=== PATIENT | male | born 1950 ===

== ENCOUNTER 2019-02-11 23:22 | Emergency (ER) | payer SELFPAY ==
[2019-02-11 23:39] VITALS: TEMP 98.1; O2SAT 99
--- NOTE | 2019-02-12 00:37 | ED PDOC ---
HPI: SOB/CHF/COPD Time Seen by Provider: 02/12/19 00:02 Chief Complaint (Nursing): Shortness Of Breath Chief Complaint (Provider): Chest pain History Per: Patient, Family History/Exam Limitations: no limitations Onset/Duration Of Symptoms: Hrs (x1) Current Symptoms Are (Timing): Still Present Additional Complaint(s): 68 y/o male with a PMHx of HTN presents to the ED with daughter for evaluation of chest pain. Patient reports of noticing an elevated blood pressure causing chest pain one hour ago that has since resolved. Patient denies feeling any chest pain at present. Patient notes of taking Lisinopril for HTN control every day as prescribed. Daughter notes patient also has developed decreased vision in the right eye since January 19, 2019. Patient notes of being seen by an opthamologist. Patient reports he cannot sleep at night because he is very nervous/anxious. Denies nausea, vomiting, diarrhea and shortness of breath. PMD: Clifford Chopra Past Medical History Reviewed: Historical Data, Nursing Documentation, Vital Signs Vital Signs: Last Vital Signs Temp 98.1 F 02/11/19 23:31 Pulse 61 02/11/19 23:31 Resp 16 02/11/19 23:31 BP 164/88 H 02/11/19 23:31 Pulse Ox 99 02/11/19 23:31 Primary Care Provider: Clifford Chopra - Medical History PMH: HTN - Surgical History Surgical History: No Surg Hx - Family History Family History: States: Unknown Family Hx - Living Arrangements Living Arrangements: With Family - Allergies Allergies/Adverse Reactions: Allergies Allergy/AdvReac Type Severity Reaction Status Date / Time No Known Allergies Allergy Verified 02/11/19 23:37 Review of Systems ROS Statement: Except As Marked, All Systems Reviewed And Found Negative Eyes: Positive for: Vision Change Cardiovascular: Positive for: Chest Pain Physical Exam - Reviewed Nursing Documentation Reviewed: Yes Vital Signs Reviewed: Yes - Physical Exam Appears: Positive for: No Acute Distress Head Exam: Positive for: ATRAUMATIC, NORMOCEPHALIC Skin: Positive for: Normal Color, Warm, Dry Eye Exam: Positive for: Normal appearance, EOMI, PERRL ENT: Positive for: Normal ENT Inspection Neck: Positive for: Normal, Painless ROM, Supple Cardiovascular/Chest: Positive for: Regular Rate, Rhythm. Negative for: Murmur Respiratory: Positive for: Normal Breath Sounds. Negative for: Respiratory Distress Gastrointestinal/Abdominal: Positive for: Normal Exam, Soft. Negative for: Tenderness Extremity: Positive for: Normal ROM. Negative for: Deformity Neurological/Psych: Positive for: Awake, Alert, Oriented (x3). Negative for: Motor/Sensory Deficits - Laboratory Results Result Diagrams: 02/12/19 00:39 02/12/19 00:39 - ECG O2 Sat by Pulse Oximetry: 99 (RA) Pulse Ox Interpretation: Normal Medical Decision Making Medical Decision Making: Time: 28 Impression: Resolved Chest Pain Differentials include but not limited to uncontrolled HTN and ACS Plan: -- EKG -- BMP -- Troponin I -- CBC with Differentials -- CXR Two Views Scribe Attestation: Documented by Rolf Barajas, acting as a scribe Nidia Reno MD. Provider Scribe Attestation: All medical record entries made by the Scribe were at my direction and personally dictated by me. I have reviewed the chart and agree that the record accurately reflects my personal performance of the history, physical exam, med [facility] decision making, and the department course for this patient. I have also personally directed, reviewed, and agree with the discharge instructions and disposition. Disposition - Clinical Impression Clinical Impression: Chest pain, Hypertension, Left against medical advice - Patient ED Disposition Is Patient to be Admitted: No Doctor Will See Patient In The: Office Counseled Patient/Family Regarding: Studies Performed, Diagnosis, Need For Followup - Disposition Referrals: Clifford Chopra MD [Primary Care Provider] - Disposition: Against Medical Advice Disposition Time: 03:17 Condition: GOOD Additional Instructions: LYNDA RODRIGUEZ, thank you for letting us take care of you today. Your provider was Nba Reno MD and you were treated for SOB. The emergency medical care you received today was directed at your acute symptoms. If you were prescribed any medication, please fill it and take as directed. It may take several days for your symptoms to resolve. Return to the Emergency Department if your symptoms worsen, do not improve, or if you have any other problems. Please contact your doctor or call one of the physicians/clinics you have been referred to that are listed on the Patient Visit Information form that is included in your discharge packet. Bring any paperwork you were given at discharge with you along with any medications you are taking to your follow up visit. Our treatment cannot replace ongoing medical care by a primary care provider outside of the emergency department. Thank you for allowing the [facility] team to be part of your care today. If you had an X-Ray or CT scan: A Radiologist will review the ED reading if any change in treatment is needed we will contact you. Instructions: Chest Pain, Leaving Against Medical Advice Forms: [employer] ([place]) Print Language: GEORGIAN
[2019-02-12 00:43] LABS: BASO % 0.9 % (0.0-2.0); EOS # 0.1 K/uL (0.0-0.7); HEMOGLOBIN 13.8 g/dL (12.0-18.0); LYMPH # 1.1 K/uL (1.0-4.3); LYMPH % 21.7 % (20.0-40.0); MEAN CELL VOLUME 91.1 fl (80.0-94.0); MEAN CORPUSCULAR HEMOGLOBIN 30.8 pg (27.0-31.0); MEAN CORPUSCULAR HGB CONC 33.8 g/dL (33.0-37.0); MEAN PLATELET VOLUME 8.6 fl (7.2-11.7); MONO # 0.6 K/uL (0.0-0.8); MONO % 10.9 % (0.0-10.0); NEUT # 3.4 K/uL (1.8-7.0); NEUT % 64.5 % (50.0-75.0); RBC 4.47 Mil/uL (4.40-5.90); RED CELL DISTRIBUTION WIDTH 12.8 % (11.5-14.5); WHITE BLOOD COUNT 5.2 K/uL (4.8-10.8)
[2019-02-12 00:50] LABS: BLOOD UREA NITROGEN 18 mg/dl (9-20); CALCIUM 9.2 mg/dL (8.4-10.2); GFR NON-AFRICAN AMERICAN > 60
[2019-02-12 03:19] VITALS: PULSE 52; RESP 16
[2019-02-12 03:20] VITALS: BP 133/76
--- NOTE | 2019-02-12 10:16 | RAD ---
Date of service: 02/12/2019 HISTORY: chest pain COMPARISON: No prior. TECHNIQUE: Chest PA and lateral views FINDINGS: LUNGS: No active pulmonary disease. PLEURA: No significant pleural effusion identified. No pneumothorax apparent. CARDIOVASCULAR: There is presence of aortic atherosclerotic calcification on x-ray. Normal cardiac size. No pulmonary vascular congestion. OSSEOUS STRUCTURES: No significant abnormalities. VISUALIZED UPPER ABDOMEN: Normal. OTHER FINDINGS: None. IMPRESSION: No active disease.
--- NOTE | 2019-02-12 17:54 | CARD ---
APPROVED REPORT Date of service: 02/11/2019 EKG Measurement Heart [id number] VT [id number] <Conclusion> Sinus bradycardia Otherwise normal ECG
== END 2019-02-12 03:32 | disposition left against medical advice (07) ==
LOC: H.ER 23:22
DX: R07.9 Chest pain, unspecified (principal); I10 Essential (primary) hypertension; J44.9 Chronic obstructive pulmonary disease, unspecified